=== PATIENT | female | born 1955 | race Caucasian/White ===

== ENCOUNTER → 2021-07-18 | Outpatient (CLI) ==
[~2021-07-18] MED LIST: ATOR40TA75 PO; CALC500C16 PO; CVS1CAP2 PO; LISI10TA22 PO; OMEP10CASR PO
== END ==
LOC: EDUNIT# 09:40 → M LABSMTC 10:05
PROVIDERS: ATTEND Anesthesiology
DX: Z01.818 Encounter for other preprocedural examination (principal); Z20.822 Contact with and (suspected) exposure to COVID-19

== ENCOUNTER 2021-07-23 06:10 | Day surgery (SDC) | payer OTHER, MEDICARE ==
[~2021-07-23] VITALS: Ht 162.6 cm; Wt 99.8 kg
[~2021-07-23 06:10] MED LIST changes: +CYCLOPENTOLATE 1% OPHTH SOLN 2 ML BTL OD SCH; +FLURBIPROFEN 0.03% OPHTH SOLN 2.5 ML OD SCH; +PHENYLEPHRINE 2.5% OPHTH SOL 2ML OD SCH; +PHENYLEPHRINE HCL 10 % OPHTH. SOL 5ML OD ONE; +TETRACAINE 0.5% OPHTH SOLN 4ML OD SCH
[2021-07-23] MEDS ORDERED: LIDOCAINE 1% SDV 5ML VIAL As Ordered ONE (06:45)
[2021-07-23] MEDS ORDERED: LR 1,000 ML IV SCH (07:00)
[2021-07-23] MEDS ORDERED: MIDAZOLAM INJ 2MG/2ML VIAL (J2250 PER 1MG) As Ordered ONE (07:14)
[2021-07-23] MEDS ORDERED: fentaNYL 100 MCG/2 ML INJECTION (J3010) As Ordered ONE (07:14)
[2021-07-23] MEDS ORDERED: DUOVISC (0.50ML VISCOAT/0.85ML PROVISC) OPHTH KIT As Ordered ONE (07:17)
[2021-07-23] MEDS ORDERED: MAXITROL OPHTH SUSP 5 ML As Ordered ONE (07:28)
[2021-07-23 09:30] VITALS: BP 191/79
--- NOTE | 2021-07-23 16:26 | ROOPDOC ---
[facility] Report Of Operation Report of Operation PREPROCEDURE DIAGNOSES: Cataract right eye. POSTPROCEDURE DIAGNOSES: Same. PROCEDURE PERFORMED: Cataract extraction with intraocular lens implantation right eye. SURGEON: Jason Anthony MD RESIDENT CARE PROVIDER: None ANESTHESIA: local with intravenous sedation ESTIMATED BLOOD LOSS: None. COMPLICATIONS: None. SPECIMENS REMOVED: None DESCRIPTION OF PROCEDURE: The patient's 0 and 180 degree locations were marked. The patient was then brought to the operating room and prepped and draped in the usual sterile fashion and an eyelid speculum was inserted in the right eye. A paracentesis was made and the anterior chamber was inflated with non-preserved lidocaine. This was followed by injection of Viscoat. A groove was made in the temporal clear cornea which was tunneled forward with the crescent blade and the anterior chamber was entered with a 2.75 keratome. The cystotome was used to make an incision in the center of the capsule and a continuous curvilinear capsulorhexis was created. The lens was hydrodissected until it was found to rotate freely within the capsular bag. Phacoemulsification was then used to remove the lens in its entirety. Irrigation and aspiration were used to remove residual cortical material. The anterior chamber and capsular bag were reinflated with Provisc and after the appropriate pressure was obtained, the ORA system was used to confirm the preoperative lens measurement. Then the 110 degree location was marked and a 24.0 diopter [id number] lens was injected into the capsular bag using the [place] injector and dialed into the 110 degree location using the [place] hook. Irrigation and aspiration were used to remove residual viscoelastic. The wound was stromally hydrated until was found to be watertight and the eye was at an appropriate pressure. The eyelid speculum was removed from the eye and Maxitrol drops were placed over the right eye. The patient was transferred to the recovery room in stable condition and will follow up tomorrow. The total CDE was 13.72 JASON ANTHONY MD Jul 23, 2021 16:26
== END 2021-07-23 09:39 | disposition home or self-care (01) ==
LOC: M SDC 06:10
PROVIDERS: ATTEND Ophthalmology
DX: H25.11 Age-related nuclear cataract, right eye (principal); I10 Essential (primary) hypertension; J45.909 Unspecified asthma, uncomplicated; G47.30 Sleep apnea, unspecified; K21.9 Gastro-esophageal reflux disease without esophagitis; Z79.899 Other long term (current) drug therapy
CPT/HCPCS: 66984; 92015; J2250; J3010

== ENCOUNTER → 2021-08-19 | Outpatient (REF) | payer OTHER, MEDICARE ==
[~2021-08-19] MED LIST changes: -CYCLOPENTOLATE 1% OPHTH SOLN 2 ML BTL OD SCH; -FLURBIPROFEN 0.03% OPHTH SOLN 2.5 ML OD SCH; -PHENYLEPHRINE 2.5% OPHTH SOL 2ML OD SCH; -PHENYLEPHRINE HCL 10 % OPHTH. SOL 5ML OD ONE; -TETRACAINE 0.5% OPHTH SOLN 4ML OD SCH
[2021-08-19 17:25] LABS: FOLATE 21.3 NG/ML
== END ==
LOC: M LAB REF 16:11
PROVIDERS: ATTEND Internal Medicine
DX: R19.7 Diarrhea, unspecified (principal)

== ENCOUNTER → 2021-12-17 | Outpatient (REF) | payer MEDICARE, OTHER ==
[2021-12-23 11:12] LABS: CALPROTECTIN STOOL 31 ug/g (0-120); FATS NEUTRAL Normal (.); FATS TOTAL Increased (.)
== END ==
LOC: M LAB REF 12:09
PROVIDERS: ATTEND Internal Medicine Gastroenterology
DX: R19.7 Diarrhea, unspecified (principal); K21.9 Gastro-esophageal reflux disease without esophagitis

== ENCOUNTER → 2022-06-11 | Outpatient (REF) | payer BC, MEDICARE ==
[2022-06-11 13:11] LABS: PERCENT SATURATION 23.1 % (13.2-45.0)
[2022-06-11 13:56] LABS: FOLATE 21.6 NG/ML
== END ==
LOC: M LAB REF 12:11
PROVIDERS: ATTEND Internal Medicine
DX: Z98.84 Bariatric surgery status (principal)

== ENCOUNTER → 2023-02-03 | Outpatient (CLI) | payer BC, MEDICARE | LOC: M WUC 09:37 | PROVIDERS: ATTEND Internal Medicine | DX: Z01.818 Encounter for other preprocedural examination (principal) ==

== ENCOUNTER 2023-02-18 06:12 | Observation (INO) | payer MEDICARE ==
[~2023-02-18] VITALS: Ht 162.6 cm; Wt 88.6 kg
[2023-02-18] VITALS (7 sets, daily range): BP systolic 113–131; BP diastolic 51–58
[~2023-02-18 06:12] MED LIST changes: +HEPARIN SOD (PORCINE) 5000UNITS/ML 1ML VIAL/SYRINGE SQ ONE; +ceFAZolin SOD 2 GM in IV 1 EA IV ONE
[2023-02-18] MEDS ORDERED: LR 1,000 ML IV SCH ×2 (06:25→10:50)
[2023-02-18] MEDS ORDERED: BUPIVACAINE LIPOSOME/PF 1.3% 20ML VIAL (13.3MG/ML)(EXPAREL) As Ordered ONE (07:09)
[2023-02-18] MEDS ORDERED: GENTAMICIN SULF 80MG/2ML VIAL As Ordered ONE (07:09)
[2023-02-18] MEDS ORDERED: BUPIVACAINE HCL 0.25% 10ML VIAL As Ordered ONE (07:09)
[2023-02-18] MEDS ORDERED: ROCURONIUM BROMIDE 50MG/5ML VIAL As Ordered ONE ×2 (07:12→08:30)
[2023-02-18] MEDS ORDERED: LIDOCAINE 2% 100MG/5ML SDV (FOR ANES.) As Ordered ONE (07:12)
[2023-02-18] MEDS ORDERED: propofoL 200 MG/20 ML VIAL As Ordered ONE (07:12)
[2023-02-18] MEDS ORDERED: fentaNYL 100 MCG/2 ML INJECTION As Ordered ONE (07:13)
[2023-02-18] MEDS ORDERED: MIDAZOLAM INJ 2MG/2ML VIAL As Ordered ONE (07:13)
[2023-02-18] MEDS ORDERED: LIDOCAINE 1% MDV 20ML VIAL As Ordered ONE (07:40)
[2023-02-18] MEDS ORDERED: EPINEPHrine INJ 1 MG/ML 1ML AMP As Ordered ONE (07:40)
[2023-02-18] MEDS ORDERED: VITA1CAP25 PO (07:47)
[2023-02-18] MEDS ORDERED: HOME MED LIST COMPLETE! XX SCH (07:50)
[2023-02-18] MEDS ORDERED: HYDROmorphone HCL 2MG/ML 1ML VIAL As Ordered ONE (08:14)
[2023-02-18] MEDS ORDERED: METOCLOPRAMIDE INJ 10MG/2ML VIAL As Ordered ONE (08:24)
[2023-02-18] MEDS ORDERED: SUGAMMADEX SODIUM 500 MG/5 ML VIAL (BRIDION) As Ordered ONE (08:25)
[2023-02-18] MEDS ORDERED: ONDANSETRON 4MG 2ML VIAL As Ordered ONE (08:25)
[2023-02-18] MEDS ORDERED: ACETAMINOPHEN 1000MG 100ML IV BAG As Ordered ONE (08:25)
[2023-02-18] MEDS ORDERED: KETOROLAC 60MG 2ML VIAL As Ordered ONE (08:25)
[2023-02-18] MEDS ORDERED: PHENYLephrine 500MCG 5ML (100MCG/ML) SYRINGE As Ordered ONE (08:43)
[2023-02-18] MEDS ORDERED: ePHEDrine SULFATE 25 MG/5 ML(5MG/ML) SYRINGE As Ordered ONE (09:26)
[2023-02-18] MEDS ORDERED: HYDROMORPHONE HCL 0.5 MG/ 0.5 ML SYRINGE IV PRN (10:50)
[2023-02-18] MEDS ORDERED: ONDANSETRON 4MG 2ML VIAL IV PRN ×2 (10:50→11:15)
[2023-02-18] MEDS ORDERED: oxyCODONE 5MG TAB PO PRN (10:50)
[2023-02-18] MEDS ORDERED: fentaNYL 100 MCG/2 ML INJECTION IV PRN (10:50)
[2023-02-18] MEDS ORDERED: PERCOCET 5MG/325MG TAB PO PRN (11:15)
[2023-02-18] MEDS ORDERED: ACETAMINOPHEN TAB 650MG DOSE (2X325MG) PO PRN (11:15)
[2023-02-18] MEDS ORDERED: traMADol 50 MG TAB PO PRN (11:15)
[2023-02-18] MEDS: ceFAZolin SOD 1 GM in D5W MINI-BAG PLUS 50 ML IV SCH (18:22)
[2023-02-18] MEDS ORDERED: CALCIUM CARBONATE 500 MG CHEW U/D PO PRN (20:25)
[2023-02-19] MEDS: ceFAZolin SOD 1 GM in D5W MINI-BAG PLUS 50 ML IV SCH (00:10)
[2023-02-19 02:00] VITALS: BP 117/57
[2023-02-19 06:00] VITALS: BP 108/53
[2023-02-19] MEDS: CALCIUM CARBONATE 500 MG CHEW U/D PO SCH ×2 (08:19→08:28)
[2023-02-19 08:28] VITALS: BP 105/53
[2023-02-19] MEDS ORDERED: ATORVASTATIN 20 MG TAB PO SCH (09:00)
[2023-02-19 10:13] VITALS: BP 106/52
[2023-02-19] MEDS ORDERED: TRAM50TA2 PO (10:37)
== END 2023-02-19 12:15 | disposition home or self-care (01) ==
LOC: M SDC 06:12 → M MS5PR 06:13 → M SDC 02-19 12:15 → M MS5PR 02-19 12:15
PROVIDERS: ADMIT Plastic Surgery Surgery of the Hand; ATTEND Plastic Surgery Surgery of the Hand
DX: N62 Hypertrophy of breast (principal); I10 Essential (primary) hypertension; E78.5 Hyperlipidemia, unspecified; K21.9 Gastro-esophageal reflux disease without esophagitis; G47.33 Obstructive sleep apnea (adult) (pediatric); J45.909 Unspecified asthma, uncomplicated; Z79.899 Other long term (current) drug therapy
CPT/HCPCS: 19318; 87635; 88300; 88305; 96361; 96365; 96366; C9290; G0378; J0131; J0171; J0690; J1100; J1170; J1580; J1885; J2250; J2370; J2405; J2765; J3010

== ENCOUNTER → 2023-03-01 | Outpatient (REF) ==
[~2023-03-01] MED LIST changes: -HEPARIN SOD (PORCINE) 5000UNITS/ML 1ML VIAL/SYRINGE SQ ONE; +TRAM50TA2 PO; +VITA1CAP25 PO; -ceFAZolin SOD 2 GM in IV 1 EA IV ONE
== END ==
LOC: M LAB 09:23
PROVIDERS: ATTEND Nurse Practitioner Adult Health
DX: Z00.00 Encounter for general adult medical examination without abnormal findings (principal)

== ENCOUNTER → 2023-07-06 | Outpatient (REF) | payer MEDICARE ==
[2023-07-06 17:14] LABS: TOTAL IRON BINDING CAPACITY 296 UG/DL (250-425)
[2023-07-06 17:16] LABS: IRON (FE) 81 UG/DL (50-170); PERCENT SATURATION 27.4 % (13.2-45.0); VITAMIN B12 LEVEL 804 PG/ML (211-911)
[2023-07-06 17:26] LABS: FOLATE > 24.0 NG/ML (>5.4)
== END ==
LOC: M LAB REF 16:10
PROVIDERS: ATTEND Internal Medicine
DX: Z98.84 Bariatric surgery status (principal); D50.9 Iron deficiency anemia, unspecified

== ENCOUNTER → 2023-09-19 | Outpatient (CLI) | payer MEDICARE | LOC: M WHC 08:40 | PROVIDERS: ATTEND Internal Medicine | DX: Z12.31 Encounter for screening mammogram for malignant neoplasm of breast (principal); N63.15 Unspecified lump in the right breast, overlapping quadrants ==

== ENCOUNTER → 2023-10-03 | Outpatient (CLI) | payer MEDICARE | LOC: M WHC 15:00 | PROVIDERS: ATTEND Internal Medicine | DX: R92.2 Inconclusive mammogram (principal) | CPT/HCPCS: 77065; G0279 ==

== ENCOUNTER → 2024-08-22 | Outpatient (REF) | payer MEDICARE | LOC: M LAB REF 16:43 | PROVIDERS: ATTEND Physician Assistant Medical | DX: R30.0 Dysuria (principal) ==

== ENCOUNTER → 2024-10-25 | Outpatient (CLI) | payer OTHER, MEDICARE | LOC: M RAD 13:31 | PROVIDERS: ATTEND Physician Assistant Surgical | DX: S83.91XA Sprain of unspecified site of right knee, initial encounter (principal); Y93.9 Activity, unspecified; Y92.9 Unspecified place or not applicable ==